=== PATIENT | female | born 1930 | race Caucasian/White ===

== ENCOUNTER 2017-12-18 09:58 | Outpatient (CLI) | payer MEDICARE, BC | END 2017-12-18 09:59 | disposition home or self-care (01) | LOC: BICMRI 09:58 | PROVIDERS: ATTEND Anesthesiology Pain Medicine | DX: M47.892 Other spondylosis, cervical region (principal); M43.12 Spondylolisthesis, cervical region; M48.02 Spinal stenosis, cervical region | CPT/HCPCS: 72052; 72141 ==

== ENCOUNTER 2018-03-12 10:33 | Outpatient (CLI) | payer MEDICARE, BC | END 2018-03-12 10:34 | disposition home or self-care (01) | LOC: BICRAD 10:33 | PROVIDERS: ATTEND Internal Medicine Rheumatology | DX: M81.8 Other osteoporosis without current pathological fracture (principal) | CPT/HCPCS: 72070 ==

== ENCOUNTER 2019-08-06 15:02 | Outpatient (CLI) | payer MEDICARE, BC ==
--- NOTE | 2019-08-06 16:44 | BD ---
Exam: DEXA Bone Density 08/06/19 INDICATIONS: Postmenopausal osteoporosis screening. Lumbar Spine: BMD (g/cm2) T-SCORE L1 0.919 -0.6 L2 1.195 1.5 L3 1.376 2.7 L4 1.390 3.0 L1-L4 1.229 1.7 Femoral Neck: 0.917 0.6 Total Femur: 0.961 0.2 Impression: Bone mineral density of the lumbar spine and femoral neck are both within normal range. Ten year fracture risk: Major osteoporotic fracture: 9.8%. Hip fracture: 2.2%. POS: [facility]
== END 2019-08-06 15:03 | disposition home or self-care (01) ==
LOC: BICMAMMO 15:02
PROVIDERS: ATTEND Internal Medicine Rheumatology
DX: M81.8 Other osteoporosis without current pathological fracture (principal)
CPT/HCPCS: 77080